=== PATIENT | male | born 1980 | race Caucasian/White ===

== ENCOUNTER 2019-08-10 15:10 | Emergency (ER) | payer SELFPAY ==
[2019-08-10 15:12] VITALS: BP 136/102; PULSE 122; RESP 16; TEMP 36.6; O2SAT 96; BMI 19.6
[2019-08-10 15:19] VITALS: RESP 18
--- NOTE | 2019-08-10 18:14 | ED.VISSUMM ---
- ER Visit Summary Date of Service: 08/10/19 Chief Complaint: Covid testing History of Present Illness: The patient is a 38 M who called 911. According to the patient and EMS, he had been drinking earlier today. He called 911 for coronavirus testing. He has no symptoms or risk factors. EMS and his family suggested that he has a problem with alcohol and that he go to the hospital for detox. Patient says he uses alcohol occasionally. He denies history of alcoholism and does not want detox. He denies any suicidal or homicidal thoughts. No other complaints. Physical Examination: Afebrile and vital signs unremarkable except for heart rate of 122. Patient is in no acute distress. Cranial nerves grossly intact. Normal strength and sensation. Normal gait. Patient's speech is normal, and then complains of a stutter. He only stutters when he is talking about stuttering. No dysarthria or aphasia. Head and neck atraumatic. Heart regular. Lungs clear. Abdomen soft. Test Results: None indicated Emergency Department Course and Treatment: Patient presents for intoxication. He is intoxicated by history and exam. He is in no acute distress. Patient had a diet ordered. He was resting comfortably in the bed for several hours. I reassessed him. He was feeling better. No further neurologic symptoms or stutter complaints. He does not want detox. Patient will rest another half an hour and then be discharged per his request. Treatment Plan: As above Disposition: Discharge Impression: Alcohol intoxication This note was generated with [employer] dictation software. It may contain incorrect words, spelling, and punctuation that were not noted in review of the chart prior to signing ED Disposition - Plan for ED Patient: Referrals: Care Physician,No Primary [Primary Care Provider] -
--- NOTE | 2019-08-10 18:17 | ED.DEP ---
ED Disposition - Plan for ED Patient: Instructions: ED INTOXICATION Alcohol Referrals: Keri Urbano [NON-STAFF] -
--- NOTE | 2019-08-10 18:42 | CM.ED ---
SOCIAL WORK INFORMANT: NURSING REASON FOR REFERRAL: TRANSPORTATION MET WITH PATIENT IN ROOM. PATIENT STATES NEEDING TRANSPORTATION HOME. PATIENT STATES HAS THE MONEY TO PAY FOR [facility] AND IS IN AGREEMENT WITH THIS WORKER CALLING [employer] TO TRANSPORT PATIENT HOME. CALL TO [facility]. [facility] TO ARRIVE IN THE NEXT 10-15 MINUTES. NURSE UPDATED AND WILL UPDATE PATIENT. BEATRICE BUCIO, [employer]KE W[employer].
== END 2019-08-10 18:50 | disposition home or self-care (01) ==
PROVIDERS: Emergency Provider Emergency Medicine
DX: F10.129 Alcohol abuse with intoxication, unspecified (principal); Y90.9 Presence of alcohol in blood, level not specified; Z72.0 Tobacco use
CPT/HCPCS: 99284